=== PATIENT | male | born 1980 | race Caucasian/White ===

== ENCOUNTER 2021-08-23 08:26 | Outpatient (CLI) | payer BC | END 2021-08-23 08:27 | disposition home or self-care (01) | LOC: CSHMRI 08:26 | PROVIDERS: ATTEND Physician Assistant | DX: M51.36 Other intervertebral disc degeneration, lumbar region (principal); M51.37 Other intervertebral disc degeneration, lumbosacral region; M51.26 Other intervertebral disc displacement, lumbar region; M51.27 Other intervertebral disc displacement, lumbosacral region | CPT/HCPCS: 72148 ==